=== PATIENT | female | born 1990 | race Caucasian/White ===

== ENCOUNTER 2016-11-30 23:17 | Emergency (ER) | payer MEDICAID ==
[~2016-11-30 23:17] MED LIST: ALBUTEROL17 GM; AMBIEN5 M1 PO; GLIPIZIDE10 M2 PO; JARDIANCE25 MG PO; METFORMIN HCL500 M2 PO; PROPRANOLOL HCL20 M2 PO; TOPAMAX50 M3 PO; TRAZODONE HCL50 M1 PO
[2016-11-30] MEDS ORDERED: LORATADINE PO (23:47)
[2016-12-01] MEDS ORDERED: FLONASE ALLERG9.9 ML (00:13)
[2016-12-01] MEDS ORDERED: NORCO 5-325 TA1 EACH PO (00:41)
== END 2016-12-01 00:52 ==
LOC: EDMED 23:17
DX: S39.012A Strain of muscle, fascia and tendon of lower back, initial encounter (principal); E11.9 Type 2 diabetes mellitus without complications; F17.210 Nicotine dependence, cigarettes, uncomplicated; Z88.0 Allergy status to penicillin; W19.XXXA Unspecified fall, initial encounter
CPT/HCPCS: J1170; J1885; J2060